=== PATIENT | female | born 2000 | race Caucasian/White ===

== ENCOUNTER 2021-12-21 13:55 | Emergency (ER) | payer OTHER ==
[~2021-12-21] VITALS: Ht 170.2 cm; Wt 59.0 kg
[2021-12-21] MEDS ORDERED: predniSONE 50 MG TABLET PO ONE (14:30)
[2021-12-21] MEDS ORDERED: predniSONE 50 MG TABLET ONE (14:48)
[2021-12-21] MEDS ORDERED: HYDR-3972 PO (15:12)
--- NOTE | 2021-12-21 15:17 | NUR ---
Patient discharged to home in stable condition. Written and verbal after care instructions given. Patient verbalizes understanding of instructions. Stressed follow up or return to ER for worsening s/s.
== END 2021-12-21 15:18 | disposition home or self-care (01) ==
LOC: ER 13:55
DX: J20.9 Acute bronchitis, unspecified (principal); Z20.822 Contact with and (suspected) exposure to COVID-19; Z88.2 Allergy status to sulfonamides
CPT/HCPCS: 86403; 87070; 87400; 87426; 99283; J7512; A4663